=== PATIENT | female | born 1940 | race Caucasian/White ===

== ENCOUNTER 2017-09-07 09:25 | Outpatient (CLI) | payer BC ==
--- NOTE | 2017-09-08 09:02 | Ultrasound Report ---
DATE OF SERVICE: 09/07/2017 RIGHT UPPER QUADRANT ABDOMINAL ULTRASOUND: 09/07/2017 COMPARISON: None INDICATION: Epigastric abdominal pain. TECHNIQUE: Sonographic evaluation of the right upper quadrant. FINDINGS: The liver is somewhat heterogeneous but has normal contour. Normal echogenicity without demonstrated mass. Portal venous flow is directed toward the liver. There is no ascites. The pancreas is poorly evaluated due to overlying bowel gas. There are echogenic foci within the gallbladder which may represent noncalcified stones versus sludge. Common duct measures 5 mm. Intrahepatic ducts are prominent measuring up to 6 mm, giving a double duct sign consistent with intrahepatic ductal dilation of uncertain etiology. The right kidney demonstrates mild pelviectasis and is otherwise unremarkable, measuring 9.7 cm longitudinally. IMPRESSION Slightly heterogeneous liver is nonspecific. There is a double duct sign, suggesting intrahepatic ductal dilation of uncertain etiology. TD: 09/07/2017 21:20 MTDD
== END 2017-09-07 09:26 | disposition home or self-care (01) ==
LOC: DI 09:25
PROVIDERS: ATTEND Internal Medicine Gastroenterology
DX: R10.13 Epigastric pain (principal)
CPT/HCPCS: 76705

== ENCOUNTER 2018-06-28 12:10 | Outpatient (CLI) | payer MEDICARE, BC ==
--- NOTE | 2018-06-28 13:12 | XRAY Report ---
Reason: HAND PAIN/WRIST PAIN Procedure Date: 06/28/2018 Accession Number: [id number] / [id number] Procedure: XR - Wrist 4 View LT CPT Code: FULL RESULT: EXAM: LEFT WRIST RADIOGRAPHY EXAM DATE: 06/28/2018 12:50 PM. CLINICAL HISTORY: HAND PAIN/WRIST PAIN. COMPARISON: None. TECHNIQUE: 4 views. FINDINGS: Bones: Intra-articular nondisplaced distal left radial fracture. Nondisplaced ulnar styloid fracture Joints: Degenerative change first metacarpal carpal articulation Soft Tissues: Mild soft tissue swelling. IMPRESSION: Nondisplaced fractures distal left radius and ulna RADIA
--- NOTE | 2018-06-28 13:17 | XRAY Report ---
Reason: HAND PAIN/WRIST PAIN Procedure Date: 06/28/2018 Accession Number: [id number] / [id number] Procedure: XR - Hand 3 View LT CPT Code: FULL RESULT: EXAM: LEFT HAND RADIOGRAPHY EXAM DATE: 06/28/2018 12:50 PM. CLINICAL HISTORY: HAND PAIN/WRIST PAIN. COMPARISON: None. TECHNIQUE: 3 views. FINDINGS: Bones: Fractures distal left radius and ulna. See left wrist report Joints: Scattered degenerative changes of the interphalangeal joints of the fingers and moderately severe first metacarpal carpal articulation degenerative change. No subluxations. Soft Tissues: Mild soft tissue swelling. IMPRESSION: Degenerative change left hand. Fractures distal left radius and ulna. RADIA
== END 2018-06-28 12:11 | disposition home or self-care (01) ==
LOC: DI 12:10
PROVIDERS: ATTEND Internal Medicine
DX: S52.502A Unspecified fracture of the lower end of left radius, initial encounter for closed fracture (principal); S52.615A Nondisplaced fracture of left ulna styloid process, initial encounter for closed fracture; M19.042 Primary osteoarthritis, left hand

== ENCOUNTER 2018-06-28 14:47 | Emergency (ER) | payer MEDICARE, BC ==
[2018-06-28 14:55] VITALS: BP 142/52
--- NOTE | 2018-06-28 15:08 | ED Physician Documentation ---
PD HPI UPPER EXT INJURY - Stated complaint Stated Complaint: L WRIST INJ - Chief complaint Chief Complaint: Ext Problem - History obtained from History obtained from: Patient - History of Present Illness Location: Left, Wrist Type of injury: Fall Where injury occurred: Home Timing - onset: How many days ago (2) Timing - duration: Days (2) Worsened by: Moving, Palpating Associated symptoms: No: Weakness, Numbness Similar symptoms before: Has not had sx before Recently seen: Clinic (and had outpt xray showing wrist fracture; referred to ED for splinting.) Review of Systems Skin: denies: Abrasion (s), Laceration (s) Musculoskeletal: denies: Neck pain, Back pain Neurologic: denies: Focal weakness, Numbness, Head injury PD PAST MEDICAL HISTORY - Past Medical History Cardiovascular: Deep vein thrombosis Respiratory: None Endocrine/Autoimmune: None GI: Ulcerative colitis : None HEENT: None Psych: None Musculoskeletal: Osteoarthritis Derm: None - Past Surgical History General: Colonoscopy Ortho: Knee replacement /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 - Present Medications Home Medications: Ambulatory Orders Medication Instructions Recorded Confirmed Ascorbate Calcium [Vitamin C] 500 mg PO QAM 07/04/13 09/05/13 Cholecalciferol (Vitamin D3) 2,000 unit PO QPM 07/04/13 09/05/13 [Vitamin D-3] Delzicol 1,200 mg PO BID 07/04/13 09/05/13 Gluc HCl/Csa/Collagen/Hyalur A 1 each PO BID 07/04/13 09/05/13 [Glucosamine Chondroitin Cap] Lactobacillus Rhamnosus GG 1 each PO QPM 07/04/13 09/05/13 [Probiotic] Magnesium l-Lactate [Mag-Tab Sr] 84 mg PO QPM 07/04/13 09/05/13 Multivitamin [Multivitamins] 1 each PO QAM 07/04/13 09/05/13 [place]-3 Fatty Acids/Fish Oil 1 each PO QAM 07/04/13 09/05/13 [[place] 3 1,000 mg Softgel] RX: Biotin mg PO DAILY 07/04/13 09/05/13 RX: Flaxseed Oil 1,000 mg PO BID 07/04/13 09/05/13 RX: Lysine 500 mg PO QPM 07/04/13 09/05/13 RX: Melatonin mg PO HS 07/04/13 09/05/13 RX: Vitamin B Complex 1 each PO QAM 07/04/13 09/05/13 Ubidecarenone [Coq-10] 100 mg PO QAM 07/04/13 09/05/13 RX: Balsalazide Disodium 750 mg pe 06/28/18 - Allergies Allergies/Adverse Reactions: Allergies Allergy/AdvReac Type Severity Reaction Status Date / Time Penicillins Allergy Severe SWELLING/ED Verified 06/28/18 14:54 URI - Social History Does the pt smoke?: No Smoking Status: Never smoker Does the pt have substance abuse?: No PD ED PE NORMAL - Vitals Vital signs reviewed: Yes - General General: Alert and oriented X 3, Well developed/nourished - Derm Derm: Normal color, Warm and dry - Extremities Extremities: Other (left wrist with distal radial tenderness and swelling. No gross deformity. Good color in fingers and pulses at wrist. ) - Neuro Neuro: No motor deficit, No sensory deficit Results - Vitals Vitals: Oxygen O2 Source [With Activity] Room air O2 Source Room air Procedures - Splint (location) left wrist Splint applied by: Tech Type of splint: Fiberglass, Volar cock up Other: Patient tolerated well, No complications, Neurovascular intact, Sling provided PD MEDICAL DECISION MAKING - ED course Complexity details: reviewed results, considered differential, d/w patient Departure - Departure Disposition: 01 Home, Self Care Clinical Impression: Colles' fracture of left radius Qualifiers: Encounter type: initial encounter Fracture type: closed Qualified Code(s): S52.532A - Colles' fracture of left radius, initial encounter for closed fracture Condition: Stable Record reviewed to determine appropriate education?: Yes Instructions: ED Fx Colles Wrist No Redu Requ Follow-Up: Ela Graham MD [Primary Care Provider] - [facility] [Provider Group] Comments: Keep the splint on until follow-up with orthopedics next week for change to a cast. Keep it clean and dry. Ibuprofen or naproxen twice daily for inflammation. Add Tylenol if needed for pains. Elevate and ice it often. Use the sling to help reduce swelling. Discharge Date/Time: 06/28/18 15:53
== END 2018-06-28 15:53 | disposition home or self-care (01) ==
LOC: ED 14:47
DX: S52.532A Colles' fracture of left radius, initial encounter for closed fracture (principal); S52.502A Unspecified fracture of the lower end of left radius, initial encounter for closed fracture; S52.615A Nondisplaced fracture of left ulna styloid process, initial encounter for closed fracture; M19.042 Primary osteoarthritis, left hand; Z86.718 Personal history of other venous thrombosis and embolism
CPT/HCPCS: 29125; 99282; 99283

== ENCOUNTER 2021-10-30 12:11 | Outpatient (CLI) | payer MEDICARE, BC | END 2021-10-30 12:12 | disposition critical access hospital (66) | LOC: EMS 12:11 | DX: R46.89 Other symptoms and signs involving appearance and behavior (principal) | CPT/HCPCS: A0425; A0429 ==

== ENCOUNTER 2021-10-30 12:16 | Emergency (ER) | payer MEDICARE, BC ==
[2021-10-30 12:33] VITALS: BP 135/79
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
== END 2021-10-30 14:08 | disposition home or self-care (01) ==
LOC: EDUNIT# → ED 12:16
DX: R45.1 Restlessness and agitation (principal); F05 Delirium due to known physiological condition; I10 Essential (primary) hypertension; Z86.718 Personal history of other venous thrombosis and embolism
CPT/HCPCS: 99283